=== PATIENT | male | born 2000 | race Asian ===

== ENCOUNTER 2022-11-18 20:26 | Emergency (ER) | payer SELFPAY ==
[~2022-11-18] VITALS: Ht 175.3 cm; Wt 68.9 kg
[2022-11-18 20:42] VITALS: BP 134/88
[2022-11-18] MEDS ORDERED: CIPHCO LEFT EAR (22:17)
== END 2022-11-18 22:25 | disposition home or self-care (01) ==
LOC: ER 20:26
DX: H60.92 Unspecified otitis externa, left ear (principal)
CPT/HCPCS: 99283